=== PATIENT | female | born 1945 | race Caucasian/White ===

== ENCOUNTER 2017-11-29 12:53 | Outpatient (CLI) | payer OTHER, BC | END 2017-11-29 20:12 | disposition home or self-care (01) | LOC: SMA 12:53 | PROVIDERS: ATTEND Obstetrics & Gynecology Gynecology | DX: Z12.31 Encounter for screening mammogram for malignant neoplasm of breast (principal) | CPT/HCPCS: 77067 ==

== ENCOUNTER 2017-12-19 09:50 | Outpatient (CLI) | payer OTHER, BC | END 2017-12-19 20:12 | disposition home or self-care (01) | LOC: SUS 09:50 | PROVIDERS: ATTEND Obstetrics & Gynecology Gynecology | DX: R92.2 Inconclusive mammogram (principal) | CPT/HCPCS: 76641 ==

== ENCOUNTER 2019-10-24 11:00 | Outpatient (CLI) | payer BC, OTHER | END 2019-10-24 21:30 | disposition home or self-care (01) | LOC: SMA 11:00 | PROVIDERS: ATTEND Obstetrics & Gynecology Gynecology | DX: Z12.31 Encounter for screening mammogram for malignant neoplasm of breast (principal) | CPT/HCPCS: 77067 ==

== ENCOUNTER 2020-05-21 08:23 | Outpatient (CLI) | payer BC, OTHER | END 2020-05-21 20:57 | disposition home or self-care (01) | LOC: SUS 08:23 | PROVIDERS: ATTEND Obstetrics & Gynecology Gynecology | DX: R92.8 Other abnormal and inconclusive findings on diagnostic imaging of breast (principal) | CPT/HCPCS: 76641 ==

== ENCOUNTER 2021-11-11 10:58 | Outpatient (CLI) | payer BC, OTHER | END 2021-11-11 19:42 | disposition home or self-care (01) | LOC: SMA 10:58 | PROVIDERS: ATTEND Obstetrics & Gynecology Gynecology | DX: Z12.31 Encounter for screening mammogram for malignant neoplasm of breast (principal); N64.89 Other specified disorders of breast | CPT/HCPCS: 77067 ==